=== PATIENT | male | born 1965 | race Caucasian/White ===

== ENCOUNTER 2017-01-05 14:30 | Emergency (ER) | payer OTHER ==
--- NOTE | 2017-01-05 15:46 | ER Document Report ---
HPI - HPI Patient complains to provider of: FB in ear Onset: Other - 1 month Onset/Duration: Persistent Quality of pain: Achy Pain Level: 2 Context: Patient complains of foreign body to his left ear that he suspects may have been there for 1 month. Patient states that apart from his hearing aid came off and his ear giving him ear pain. Patient states that he saw his primary doctor who advised him to come here for further evaluation. Associated Symptoms: Earache Exacerbated by: Denies Relieved by: Denies Similar symptoms previously: No Recently seen / treated by doctor: Yes - ROS ROS below otherwise negative: Yes Systems Reviewed and Negative: Yes All other systems reviewed and negative - CONSTITUTIONAL Constitutional: DENIES: Fever - EENT EENT: REPORTS: Ear Pain - CARDIOVASCULAR Cardiovascular: DENIES: Chest pain - MUSCULOSKELETAL Musculoskeletal: DENIES: Neck Pain - DERM Skin Color: Normal Skin Problems: None Past Medical History - General Information source: Patient - Social History Smoking Status: Current Some Day Smoker - vape Drug Abuse: None Occupation: maintenance Family History: Reviewed & Not Pertinent Renal/ Medical History: Denies: Hx Peritoneal Dialysis Psychiatric Medical History: Reports: Hx Depression Surgical Hx: Negative Vertical Provider Document - CONSTITUTIONAL Agree With Documented VS: Yes Exam Limitations: No Limitations General Appearance: WD/WN, No Apparent Distress - INFECTION CONTROL TRAVEL OUTSIDE OF THE [place] IN LAST 30 DAYS: No - HEENT HEENT: Atraumatic, Normocephalic Notes: Visible foreign body to left external auditory canal - NECK Neck: Normal Inspection, Supple - RESPIRATORY Respiratory: Breath Sounds Normal, No Respiratory Distress O2 Sat by Pulse Oximetry: 94 - CARDIOVASCULAR Cardiovascular: Regular Rate, Regular Rhythm - MUSCULOSKELETAL/EXTREMETIES Musculoskeletal/Extremeties: MAEW - NEURO Level of Consciousness: Awake, Alert, Appropriate - DERM Integumentary: Warm, Dry Course - Re-evaluation Re-evalutation: 01/05/17 15:43 Foreign body removed from left external auditory canal with use of alligator forceps. Patient tolerated well. Patient with small amount of bleeding after foreign body removal. TM unable to be fully visualized due to cerumen and a small amount of blood. Patient states that his primary doctor has made a referral to ENT 01/05/17 15:45 Patient reports ear discomfort and hearing have improved after FB removal - Vital Signs Vital signs: Temp Pulse Resp BP Pulse Ox 98.3 F 72 18 141/86 H 94 01/05/17 14:51 01/05/17 14:51 01/05/17 14:51 01/05/17 14:51 01/05/17 14:51 Discharge - Discharge Clinical Impression: Elevated blood pressure reading Foreign body of ear, left Qualifiers: Encounter type: initial encounter Qualified Code(s): T16.2XXA - Foreign body in left ear, initial encounter Condition: Stable Disposition: HOME, SELF-CARE Instructions: Use of Ear Drops ([facility]), Foreign Object in the Ear ([facility]) Additional Instructions: Return immediately for any new or worsening symptoms Followup with your primary care provider, call tomorrow to make a followup appointment Follow-up with an ear nose and throat doctor for further evaluation, call today for an appointment Prescriptions: Ciprofloxacin HCl/Dexameth [Ciprodex Otic Suspension 7.5 Ml Drp Bottle] 4 drop LFT_EAR BID #1 bottle Referrals: [facility] [Provider Group] - Follow up as needed
[2017-01-05 16:05] VITALS: BP 140/80
== END 2017-01-05 16:06 | disposition home or self-care (01) ==
LOC: ER 14:30
PROC: 09C4XZZ Extirpation of Matter from Left External Auditory Canal, External Approach (ICD-10-PCS; principal; 2017-01-05)
DX: T16.2XXA Foreign body in left ear, initial encounter (principal); F17.290 Nicotine dependence, other tobacco product, uncomplicated; R03.0 Elevated blood-pressure reading, without diagnosis of hypertension; X58.XXXA Exposure to other specified factors, initial encounter
CPT/HCPCS: 99282

== ENCOUNTER 2017-03-02 17:17 | Emergency (ER) | payer OTHER ==
--- NOTE | 2017-03-02 18:29 | EKG REPORT ---
SEVERITY:- ABNORMAL ECG - SINUS RHYTHM LEFT VENTRICULAR HYPERTROPHY : Confirmed by: Patricia Pérez 02-Mar-2017 18:28:00
[2017-03-02] MEDS ORDERED: ASPIRIN 81 MG TABLET, CHEWABLE PO ONE (18:54)
--- NOTE | 2017-03-02 18:56 | ER Document Report ---
ED Medical Screen (RME) - General Chief Complaint: Chest Pain Stated Complaint: CHEST PAIN Time Seen by Provider: 03/02/17 18:53 Notes: Patient reports chest pain for 6-8 hours today. He was a coming by shortness of breath and nausea. It was left-sided. He denies any previous history of cardiac disease. He states he had a stress test 5 years ago that was normal although he was told at that time that he may have had a "stroke" 3 years before that stress test. He states he is not sure how they knew that. He denies any chronic medical problems. He states he feels better now. TRAVEL OUTSIDE OF THE [place] IN LAST 30 DAYS: No - Related Data Allergies/Adverse Reactions: No Known Allergies Allergy (Verified 03/02/17 17:28) Past Medical History Renal/ Medical History: Denies: Hx Peritoneal Dialysis Psychiatric Medical History: Reports: Hx Depression Physical Exam - Vital signs Vitals: Temp Pulse Resp BP Pulse Ox 97.7 F 88 18 135/89 H 93 03/02/17 17:26 03/02/17 17:26 03/02/17 17:26 03/02/17 17:26 03/02/17 17:26 Course - Vital Signs Vital signs: Temp Pulse Resp BP Pulse Ox 97.7 F 88 18 135/89 H 93 03/02/17 17:26 03/02/17 17:26 03/02/17 17:26 03/02/17 17:26 03/02/17 17:26
[2017-03-02 20:14] LABS: ABSOLUTE BASOPHILS # (AUTO) 0.1 10^3/uL (0.0-0.2); ABSOLUTE EOSINOPHILS # (AUTO) 0.1 10^3/uL (0.0-0.6); ABSOLUTE LYMPHOCYTES (AUTO) 2.4 10^3/uL (0.5-4.7); ABSOLUTE MONOCYTES (AUTO) 0.7 10^3/uL (0.1-1.4); ABSOLUTE NEUT (AUTO) 6.7 10^3/uL (1.7-8.2); BASOPHILS % (AUTO) 0.7 % (0-2); EOSINOPHILS % (AUTO) 0.7 % (0-6); HEMATOCRIT 44.5 % (37.9-51.0); HEMOGLOBIN 15.5 g/dL (13.5-17.0); LYMPHOCYTES % (AUTO) 23.8 % (13-45); MEAN CORPUSCULAR HEMOGLOBIN 29.3 pg (27.0-33.4); MEAN CORPUSCULAR HGB CONC 34.7 g/dL (32.0-36.0); MEAN CORPUSCULAR VOLUME 84 fl (80-97); MONOCYTES % (AUTO) 6.9 % (3-13); RED BLOOD COUNT 5.28 10^6/uL (4.35-5.55); RED CELL DISTRIBUTION WIDTH 13.7 % (11.5-14.0); SEGMENTED NEUTROPHILS % (AUTO) 67.9 % (42-78); WHITE BLOOD COUNT 9.9 10^3/uL (4.0-10.5)
--- NOTE | 2017-03-02 20:22 | RADIOLOGY REPORT (SQ) ---
EXAM DESCRIPTION: CHEST PA/LAT COMPLETED DATE/TIME: 03/02/2017 7:42 pm REASON FOR STUDY: cp COMPARISON: None. EXAM PARAMETERS: NUMBER OF VIEWS: two views TECHNIQUE: Digital Frontal and Lateral radiographic views of the chest acquired. RADIATION DOSE: NA LIMITATIONS: none FINDINGS: LUNGS AND PLEURA: No acute opacities, masses or pneumothorax. No pleural effusion. MEDIASTINUM AND HILAR STRUCTURES: No masses or contour abnormalities. HEART AND VASCULAR STRUCTURES: Heart normal size. No evidence for failure. BONES: No acute findings. HARDWARE: None in the chest. OTHER: No other significant finding. IMPRESSION: No acute findings. TECHNICAL DOCUMENTATION: JOB ID: [id number] [employer]- All Rights Reserved
[2017-03-02 20:38] LABS: ALANINE AMINOTRANSFERASE 36 U/L (21-72); ALBUMIN 4.6 g/dL (3.5-5.0); ALKALINE PHOSPHATASE 86 U/L (38-126); ANION GAP 15 (5-19); ASPARTATE AMINO TRANSFERASE 31 U/L (17-59); BILIRUBIN,DIRECT 0.5 mg/dL (0.0-0.4); BILIRUBIN,TOTAL 1.4 mg/dL (0.2-1.3); BLOOD UREA NITROGEN 14 mg/dL (7-20); CARBON DIOXIDE 27 mmol/L (22-30); CHLORIDE 104 mmol/L (98-107); CREATININE RESULT 1.02 mg/dL (0.52-1.25); GLUCOSE 87 mg/dL (75-110); POTASSIUM 4.2 mmol/L (3.6-5.0); SODIUM 145.7 mmol/L (137-145); TOTAL PROTEIN 7.8 g/dL (6.3-8.2)
--- NOTE | 2017-03-02 23:27 | ER Document Report ---
ED General - General Chief Complaint: Chest Pain Stated Complaint: CHEST PAIN Time Seen by Provider: 03/02/17 18:53 Notes: Mr. Eagle is a pleasant 51-year-old male who presents with complaint of chest pain. Patient says his chest pain started while he was working the yard today. This is also pressure type sensation directly over his heart the last 6-8 hours. His pain is now completely gone. He denies this ever happening before. He said he did feel nauseous and short of breath during the episode. He does have a family history of heart disease. His mother in her 60s from cardiac disease. Patient himself does not smoke or drink or do drugs. He does not have a history of high cholesterol hypertension or diabetes. He says he is otherwise very healthy. Patient has no other complaints at this time. Patient did have a negative cardiac stress test 5 years ago. TRAVEL OUTSIDE OF THE [place] IN LAST 30 DAYS: No - Related Data Allergies/Adverse Reactions: No Known Allergies Allergy (Verified 03/02/17 17:28) Past Medical History - Social History Smoking Status: Never Smoker Frequency of alcohol use: None Drug Abuse: None Family History: CAD Renal/ Medical History: Denies: Hx Peritoneal Dialysis Psychiatric Medical History: Reports: Hx Depression Review of Systems - Review of Systems Notes: My Normal Review Basic REVIEW OF SYSTEMS: CONSTITUTIONAL : Denies fever, chills, or sweats. Denies recent illness. EENT: Denies eye, ear, throat, or mouth pain or symptoms. Denies nasal or sinus congestion. CARDIOVASCULAR: Chest pain RESPIRATORY: Denies cough, cold, or chest congestion. Some difficulty breathing with episode. GASTROINTESTINAL: Denies abdominal pain. Some nausea MUSCULOSKELETAL: Denies neck or back pain or joint pain or swelling. SKIN: Denies rash or skin lesions. NEUROLOGICAL: Denies altered mental status or loss of consciousness. ALL OTHER SYSTEMS REVIEWED AND NEGATIVE. Physical Exam - Vital signs Vitals: Temp Pulse Resp BP Pulse Ox 97.7 F 88 18 135/89 H 93 03/02/17 17:26 03/02/17 17:26 03/02/17 17:26 03/02/17 17:26 03/02/17 17:26 - Notes Notes: General Appearance: Well nourished, alert, cooperative, no acute distress, no obvious discomfort. Well-appearing. Vitals: reviewed, See vital signs table. Head: no swelling or tenderness to the head Eyes: PERRL, EOMI, Conjuctiva clear Mouth: No decreasd moisture Neck: Supple, no neck tenderness, No thyromegaly Lungs: No wheezing, No rales, No rhonci, No accessory muscle use, good air exchange bilaterally. Heart: Normal rate, Regular rythm, No murmur, no rub Abdomen: Normal BS, soft, No rigidity, No abdominal tenderness, No guarding, no rebound, no abdominal masses, no organomegaly Extremities: strength 5/5 in all extremities, good pulses in all extremities, no swelling or tenderness in the extremities, no edema. Skin: warm, dry, appropriate color, no rash Neuro: speech clear, oriented x 3, normal affect, responds appropriately to questions. Course - Re-evaluation Re-evalutation: 03/03/17 05:40 Talk to the patient at length. I informed him that I strongly recommend that he stays in the hospital based on his story sounds very convincing of possible coronary disease. And concerned that the patient had pain and pressure over the left side that began while working in the yard. He also has a strong family history of heart disease with his mother. Patient otherwise does not have many risk factors however still felt that he should stay for further workup and possible stress test. Patient says that do not stay in the ER and understands the risks based taking by leaving. He says he will follow-up closely with a it application development manager. I will refer him to cardiology. I will discharge him with aspirin and nitro. I informed him that he is to return to the ER immediately if has any recurrence of chest pain, difficulty breathing, or nausea. I informed him that if he has chest pain he must take a nitro tablet and immediately called the ambulance. I told him that he is welcome back at any time and we encouraged him to return so that we can continue his workup and further take care of him. Patient agrees with plan will be discharged home. Dictation of this chart was performed using voice recognition software; therefore, there may be some unintended grammatical errors. - Vital Signs Vital signs: Temp Pulse Resp BP Pulse Ox 97.7 F 88 29 H 133/91 H 95 03/02/17 17:26 03/02/17 17:26 03/03/17 01:00 03/03/17 00:01 03/03/17 00:01 - Laboratory Result Diagrams: 03/02/17 19:50 03/02/17 19:50 Laboratory results interpreted by me: 03/02/17 19:50 Sodium 145.7 H Total Bilirubin 1.4 H Direct Bilirubin 0.5 H - EKG Interpretation by Me Additional EKG results interpreted by me: 03/02/17 23:27 EKG is reviewed and interpreted by me. EKG shows normal sinus rhythm with rate of [address] segment elevation or depression. No ischemic T-wave inversions. GA interval, QRS duration, QTc intervals are within normal range. No old EKG available for comparison. Discharge - Discharge Clinical Impression: Chest pain Qualifiers: Chest pain type: unspecified Qualified Code(s): R07.9 - Chest pain, unspecified Condition: Stable Disposition: HOME, SELF-CARE Additional Instructions: ASPIRIN: Aspirin has been shown to have a beneficial effect on blood circulation by reducing the clotting effect of platelets in the blood. These beneficial effects can be achieved by taking just a single baby (81 mg) aspirin a day. It is recommended that any person over the age of forty take a single baby aspirin every day for heart and brain circulation, unless you are allergic to aspirin or have some significant bleeding disorder. It is strongly recommended that people who have proven cardiac or blood circulation disturbances should take a baby aspirin every day. NITRATES: Nitroglycerin and related longer-acting nitrate medications are used to prevent or treat attacks of angina. These medicines dilate blood vessels, decreasing the work of the heart, and improving its supply of oxygen. Many different forms are available, including sublingual tablets (used under the tongue), sprays, skin patches, and long-acting pills. If the particular form of medication you have been given is not working well for you, contact your doctor. Long-acting forms: Take exactly as prescribed. Sudden stopping of medication can provoke increased attacks. Sublingual tabs or spray: A headache will usually occur with use. Sit or lie while waiting for the pain to go away. If angina doesn't respond to three doses (five minutes apart), call for emergency assistance. FOLLOW-UP CARE: If you have been referred to a physician for follow-up care, call the physician s office for an appointment as you were instructed or within the next two days. If you experience worsening or a significant change in your symptoms, notify the physician immediately or return to the Emergency Department at any time for re-evaluation. As discussed with you, I feel that your story is very convincing that your pain today could be coming from the heart. Chest pain can be a warning sign of an impending heart attack. Heart attacks can be fatal. This is why I recommend that you stay in the hospital tonight. I respect your decision to not want to stay in the hospital; however, I want you to have a very low threshold to return to the ER if you have any recurrent pain. I have prescribed nitroglycerin. This is a tablet that you put underneath your tongue and dissolves in your mouth. If you have chest pain, please take Nitro tablets and call an ambulance to come straight to the ER. Please take an 81 mg aspirin every day. This helps protect your heart. I have put down the number of Dr. Alas. He is a local it application development manager. Please call him for a close follow-up appointment and reevaluation and possible outpatient stress test. Prescriptions: Nitroglycerin 0.3 mg SL Q5MP PRN #[id number] tab.subl PRN Reason: chest pain Referrals: HUDSON ALAS MD [ACTIVE STAFF] - 03/03/17
[2017-03-03 01:11] VITALS: BP 133/91
== END 2017-03-03 01:16 | disposition left against medical advice (07) ==
LOC: ER 17:17
DX: R07.9 Chest pain, unspecified (principal); R11.0 Nausea; R06.02 Shortness of breath; E78.00 Pure hypercholesterolemia, unspecified; I10 Essential (primary) hypertension; E11.9 Type 2 diabetes mellitus without complications
CPT/HCPCS: 36415; 71020; 80053; 84484; 85025; 93005; 93010; 99285